=== PATIENT | female | born 1970 | race African-American/Black ===

== ENCOUNTER 2019-11-29 20:10 | Observation (INO) ==
[2019-11-29 20:56] LABS: Basophils # 0.1 10*3/uL (0.0-0.2); Basophils % 0.7 % (0.0-0.8); Eosinophils # 0.1 10*3/uL (0.0-0.87); Eosinophils % 1.6 % (0.00-10.9); Hematocrit 39.4 VOL% (35.7-47.0); Immature Granulocytes % 0.3 %; Immature Granulocytes Absolute 0.02 #; Lymphocytes # 1.8 10*3/uL (1.4-4.0); Lymphocytes % 24.8 % (21.3-54.2); Mean Corpuscular Volume 79.3 FL (87-102); Monocytes % 6.4 % (1.7-12.7); Neutrophils % 66.2 % (38.7-73.9); Platelet Count 164 T/CUMM (130-400); Red Blood Count 4.97 MC/CUMM (3.8-5.5); Red Cell Distribution Width 15.9 % (9.3-17.3); White Blood Count 7.1 T/CUMM (4-12)
[2019-11-29 21:06] LABS: Alanine Aminotransferase 17 U/L (13-56); Albumin 3.3 G/DL (3.4-5.0); Alkaline Phosphatase 145 U/L (45-117); Aspartate Amino Transferase 32 U/L (0-37); Blood Urea Nitrogen 10 MG/DL (7-18); Calcium 8.9 MG/DL (8.5-10.1); Estimated Glom Filtration Rate 94 ML/MIN; Glucose 118 MG/DL (74-106); Osmolality,Calculated 280.3 MOS/KG (273-304); Total Protein 7.6 G/DL (6.4-8.3)
[2019-11-29 21:09] LABS: Apearance,Urine CLEAR (Clear); Bilirubin,Urine Negative (Negative); Blood, Urine Negative (Negative); Glucose,Urine (UA) Negative (Negative); Hyaline Casts,Urine 4 /LPF (0-3); Ketones,Urine Negative (Negative); Mucus,Urine Many /LPF (Occasional); Nitrite,Urine Negative (Negative); Protein,Urine Negative; RBC,Urine 1 /HPF (0-4); Squamous Epithelial Cell,Urine Occasional /HPF (0-10); Urine Color Yellow (Yellow); Urine Specific Gravity 1.009 (1.001-1.035); Urine Urobilinogen < 2.0 EU/DL (0.2-1.0); WBC,Urine 1 /HPF (0-6)
[2019-11-29 21:13] LABS: Barbiturates Screen,Urine Negative (Negative); Benzodiazepines Screen,Urine Negative (Negative); Cannabinoid Screen,Urine Negative (Negative); Opiate Screen,Urine Negative (Negative); Phencyclidine Screen,Urine Negative (Negative); Troponin I < 0.015 NG/ML (0.00-0.045)
[2019-11-29] MEDS ORDERED: hydrALAZINE 20 MG/1 ML VIAL ONE (21:31)
[2019-11-29 21:37] LABS: Platelet Estimate Adequate
[2019-11-29] MEDS ORDERED: hydrALAZINE 20 MG/1 ML VIAL IV STA (22:02)
[2019-11-29] MEDS ORDERED: LABETALOL 100 MG/20 ML VIAL IV STA (22:04)
[2019-11-29] MEDS ORDERED: LABETALOL 20 MG/4 ML SYRINGE IV ONE (22:06)
[2019-11-30] MEDS ORDERED: DEXTROSE 50% 25 GM/50 ML VIAL IV PRN (01:15)
[2019-11-30] MEDS ORDERED: GLUCAGON 1 MG VIAL IM PRN (01:15)
[2019-11-30] MEDS ORDERED: ONDANSETRON 4 MG/2 ML VIAL IV PRN (01:21)
[2019-11-30] MEDS ORDERED: DOCUSATE SODIUM 100 MG CAPSULE PO PRN (01:21)
[2019-11-30] MEDS ORDERED: ACETAMINOPHEN 325 MG TABLET PO PRN (01:21)
[2019-11-30] MEDS: SODIUM CHLORIDE 0.9% 1,000 ML IV SCH ×4 (03:17→17:58)
[2019-11-30 06:07] LABS: Basophils # 0.1 10*3/uL (0.0-0.2); Basophils % 0.7 % (0.0-0.8); Eosinophils # 0.1 10*3/uL (0.0-0.87); Eosinophils % 1.2 % (0.00-10.9); Hemoglobin 11.6 GM/DL (12.0-16.0); Immature Granulocytes % 0.4 %; Immature Granulocytes Absolute 0.03 #; Lymphocytes # 2.1 10*3/uL (1.4-4.0); Lymphocytes % 28.1 % (21.3-54.2); Mean Corpuscular HGB Conc 32.2 GM/DL (32-36); Mean Corpuscular Volume 79.8 FL (87-102); Mean Platelet Volume 12.2 FL (9.6-12.0); Neutrophils % 61.6 % (38.7-73.9); Platelet Count 201 T/CUMM (130-400); Red Blood Count 4.51 MC/CUMM (3.8-5.5); Red Cell Distribution Width 15.5 % (9.3-17.3); White Blood Count 7.4 T/CUMM (4-12)
[2019-11-30 06:36] LABS: Calcium 8.7 MG/DL (8.5-10.1); Osmolality,Calculated 281.3 MOS/KG (273-304); Risk Ratio 3.8; Thyroid Stimulating Hormone 0.914 uIU/ml (0.358-3.74); VLDL CHOLESTEROL 13.4 MG/DL
[2019-11-30] MEDS: ENOXAPARIN 40 MG/0.4 ML SYRINGE SUBCUT SCH (08:56)
[2019-11-30] MEDS: INSULIN LISPRO 100 UNIT/ML SUBCUT SCH ×4 (08:56→20:03)
[2019-11-30] MEDS: ASPIRIN EC 81 MG TABLET PO SCH (08:57)
[2019-11-30] MEDS: amLODIPine 10 MG TABLET PO SCH (08:57)
[2019-11-30] MEDS: atenoloL 50 MG TABLET PO SCH (08:57)
[2019-11-30] MEDS: CHLORTHALIDONE 25 MG TABLET PO SCH (08:57)
[2019-11-30] MEDS: Liraglutide [Victoza 3-Pak] 1.8 MG SUBCUT SCH (09:06)
[2019-11-30] MEDS ORDERED: ALBUTEROL/IPRATROPIUM 3 ML NEB RESP TX PRN (09:09)
[2019-11-30] MEDS ORDERED: POTASSIUM CHLORIDE 20 MEQ TABLET PO ONE (11:50)
[2019-11-30] MEDS: VANCOMYCIN INJ 1,500 MG in SODIUM CHLORIDE 0.9% 500 ML IV SCH (17:13)
[2019-11-30] MEDS: levETIRAcetam 500 MG TABLET PO SCH (20:25)
[2019-11-30] MEDS ORDERED: MELATONIN 3 MG TABLET PO PRN (22:21)
[2019-12-01] MEDS: SODIUM CHLORIDE 0.9% 1,000 ML IV SCH ×2 (00:58→10:13)
[2019-12-01] MEDS: VANCOMYCIN INJ 1,500 MG in SODIUM CHLORIDE 0.9% 500 ML IV SCH (04:52)
[2019-12-01 05:40] LABS: Basophils # 0.1 10*3/uL (0.0-0.2); Basophils % 0.8 % (0.0-0.8); Eosinophils # 0.2 10*3/uL (0.0-0.87); Eosinophils % 2.4 % (0.00-10.9); Hematocrit 37.4 VOL% (35.7-47.0); Hemoglobin 11.7 GM/DL (12.0-16.0); Immature Granulocytes % 0.3 %; Immature Granulocytes Absolute 0.02 #; Lymphocytes # 2.5 10*3/uL (1.4-4.0); Lymphocytes % 39.6 % (21.3-54.2); Mean Corpuscular HGB Conc 31.3 GM/DL (32-36); Mean Corpuscular Volume 81.3 FL (87-102); Mean Platelet Volume 11.8 FL (9.6-12.0); Monocytes % 7.1 % (1.7-12.7); Neutrophils % 49.8 % (38.7-73.9); Platelet Count 177 T/CUMM (130-400); Red Cell Distribution Width 15.9 % (9.3-17.3); White Blood Count 6.2 T/CUMM (4-12)
[2019-12-01 06:08] LABS: Calcium 8.4 MG/DL (8.5-10.1)
[2019-12-01] MEDS ORDERED: POTASSIUM CHLORIDE 20 MEQ TABLET PO ONE (07:52)
[2019-12-01] MEDS: INSULIN LISPRO 100 UNIT/ML SUBCUT SCH ×2 (08:17→12:56)
[2019-12-01] MEDS: levETIRAcetam 500 MG TABLET PO SCH (09:42)
[2019-12-01] MEDS: CHLORTHALIDONE 25 MG TABLET PO SCH (09:43)
[2019-12-01] MEDS: atenoloL 50 MG TABLET PO SCH (09:43)
[2019-12-01] MEDS: amLODIPine 10 MG TABLET PO SCH (09:43)
[2019-12-01] MEDS: ASPIRIN EC 81 MG TABLET PO SCH (09:43)
[2019-12-01] MEDS: Liraglutide [Victoza 3-Pak] 1.8 MG SUBCUT SCH (09:44)
[2019-12-01] MEDS: ENOXAPARIN 40 MG/0.4 ML SYRINGE SUBCUT SCH (09:44)
[2019-12-01 12:48] VITALS: BP 116/68
== END 2019-12-01 13:30 | disposition home or self-care (01) ==
LOC: N.ED 20:10 → N.EDINP 20:10 → N.TELES 11-30 03:28
PROVIDERS: ADMIT Internal Medicine; ATTEND Internal Medicine

== ENCOUNTER 2020-10-18 13:41 | Observation (INO) ==
[2020-10-18] MEDS ORDERED: ASPIRIN 325 MG TABLET PO STA (13:55)
[2020-10-18] MEDS ORDERED: ONDANSETRON 4 MG/2 ML VIAL IV STA (13:58)
[2020-10-18] MEDS ORDERED: HYDROmorphone 2 MG/1 ML VIAL IV STA (13:58)
[2020-10-18 14:08] LABS: Basophils # 0.1 10*3/uL (0.0-0.2); Basophils % 1.4 % (0.0-0.8); Eosinophils # 0.1 10*3/uL (0.0-0.87); Eosinophils % 2.1 % (0.00-10.9); Hematocrit 40.4 VOL% (35.7-47.0); Hemoglobin 13.1 GM/DL (12.0-16.0); Immature Granulocytes % 0.4 %; Immature Granulocytes Absolute 0.02 #; Lymphocytes # 1.7 10*3/uL (1.4-4.0); Lymphocytes % 34.2 % (21.3-54.2); Mean Corpuscular HGB Conc 32.4 GM/DL (32-36); Mean Corpuscular Volume 79.8 FL (87-102); Mean Platelet Volume 11.5 FL (9.6-12.0); Neutrophils % 54.9 % (38.7-73.9); Platelet Count 186 T/CUMM (130-400); Red Blood Count 5.06 MC/CUMM (3.8-5.5); Red Cell Distribution Width 15.1 % (9.3-17.3); White Blood Count 4.9 T/CUMM (4-12)
[2020-10-18] MEDS ORDERED: NITROGLYCERIN 2% OINT 1 INCH/GM PACK TOP STA (14:14)
[2020-10-18 14:18] LABS: INR 1.1; PT Patient Result 11.7 SECS (10.5-12.0); Partial Thromboplastin Time 28.7 SECS (23.9-33.8)
[2020-10-18 14:37] LABS: Albumin 3.9 G/DL (3.4-5.0); Bilirubin,Total 0.5 MG/DL (0.2-1.0); Calcium 9.6 MG/DL (8.5-10.1); Osmolality,Calculated 278.3 MOS/KG (273-304); Potassium 2.8 MMOL/L (3.5-5.1); Total Protein 8.1 G/DL (6.4-8.2)
[2020-10-18] MEDS ORDERED: POTASSIUM CHLORIDE 20 MEQ TABLET PO STA (15:02)
[2020-10-18 16:29] LABS: Bilirubin,Urine Negative (Negative); Blood, Urine Negative (Negative); Glucose,Urine (UA) Negative (Negative); Hyaline Casts,Urine 4 /LPF (0-3); Ketones,Urine Negative (Negative); Mucus,Urine Occasional /LPF (Occasional); Nitrite,Urine Negative (Negative); Protein,Urine Negative; RBC,Urine 2 /HPF (0-4); Squamous Epithelial Cell,Urine Occasional /HPF (0-10); Urine Appearance CLEAR (Clear); Urine Color Yellow (Yellow); Urine Specific Gravity 1.042 (1.001-1.035); Urine Urobilinogen < 2.0 EU/DL (0.2-1.0)
[2020-10-18 16:37] LABS: Barbiturates Screen,Urine Negative (Negative); Benzodiazepines Screen,Urine Negative (Negative); Cannabinoid Screen,Urine Negative (Negative); Opiate Screen,Urine Positive (Negative); Phencyclidine Screen,Urine Negative (Negative)
[2020-10-18] MEDS ORDERED: hydrALAZINE 20 MG/1 ML VIAL IV PRN (16:43)
[2020-10-18] MEDS ORDERED: POTASSIUM CHLORIDE 20 MEQ TABLET PO PRN (16:43)
[2020-10-18] MEDS ORDERED: BISACODYL 5 MG TABLET PO PRN (16:43)
[2020-10-18] MEDS ORDERED: GLUCAGON 1 MG VIAL IM PRN (16:43)
[2020-10-18] MEDS ORDERED: SIMETHICONE CHEW 125 MG TABLET PO PRN (16:43)
[2020-10-18] MEDS ORDERED: ONDANSETRON 4 MG/2 ML VIAL IV PRN (16:43)
[2020-10-18] MEDS ORDERED: DEXTROSE 50% 25 GM/50 ML VIAL IV PRN (16:43)
[2020-10-18] MEDS ORDERED: CALCIUM CARBONATE CHEW 500 MG TABLET PO PRN (16:43)
[2020-10-18] MEDS ORDERED: ENOXAPARIN 40 MG/0.4 ML SYRINGE SUBCUT SCH (17:00)
[2020-10-18] MEDS: PANTOPRAZOLE 40 MG TABLET PO SCH (17:36)
[2020-10-18] MEDS ORDERED: ACETAMINOPHEN 325 MG TABLET PO PRN (20:00)
[2020-10-18] MEDS: INSULIN LISPRO 100 UNIT/ML SUBCUT SCH (20:20)
[2020-10-18] MEDS: levETIRAcetam 500 MG TABLET PO SCH (20:20)
[2020-10-19 06:07] LABS: Basophils # 0.1 10*3/uL (0.0-0.2); Basophils % 1.2 % (0.0-0.8); Eosinophils # 0.2 10*3/uL (0.0-0.87); Eosinophils % 2.6 % (0.00-10.9); Hematocrit 38.1 VOL% (35.7-47.0); Immature Granulocytes % 0.3 %; Immature Granulocytes Absolute 0.02 #; Lymphocytes # 2.7 10*3/uL (1.4-4.0); Lymphocytes % 46.2 % (21.3-54.2); Mean Corpuscular HGB Conc 31.5 GM/DL (32-36); Mean Corpuscular Volume 80.9 FL (87-102); Mean Platelet Volume 12.4 FL (9.6-12.0); Monocytes % 7.9 % (1.7-12.7); Neutrophils % 41.8 % (38.7-73.9); Platelet Count 175 T/CUMM (130-400); Red Blood Count 4.71 MC/CUMM (3.8-5.5); Red Cell Distribution Width 15.1 % (9.3-17.3); White Blood Count 5.8 T/CUMM (4-12)
[2020-10-19 07:04] LABS: Albumin 3.3 G/DL (3.4-5.0); Bilirubin,Total 0.7 MG/DL (0.2-1.0); Calcium 8.8 MG/DL (8.5-10.1); Osmolality,Calculated 277.4 MOS/KG (273-304); Potassium 3.3 MMOL/L (3.5-5.1); Risk Ratio 3.81; Thyroid Stimulating Hormone 2.17 uIU/ml (0.358-3.74); Total Protein 7.2 G/DL (6.4-8.2)
[2020-10-19] MEDS: INSULIN LISPRO 100 UNIT/ML SUBCUT SCH (07:42)
[2020-10-19] MEDS ORDERED: POTASSIUM CHLORIDE 20 MEQ TABLET PO ONE (07:49)
[2020-10-19] MEDS: levETIRAcetam 500 MG TABLET PO SCH (08:22)
[2020-10-19] MEDS: PANTOPRAZOLE 40 MG TABLET PO SCH (08:22)
[2020-10-19 08:26] VITALS: BP 127/76
== END 2020-10-19 11:16 | disposition home or self-care (01) ==
LOC: EDUNIT# → EDBD → N.EDINP 13:41 → N.ED 13:41 → N.TELES 17:10
PROVIDERS: ADMIT Internal Medicine; ATTEND Internal Medicine